=== PATIENT | female | born 1995 | race African-American/Black ===

== ENCOUNTER 2019-11-09 23:01 | Emergency (ER) | payer MEDICAID ==
[~2019-11-09] VITALS: Ht 180.3 cm; Wt 55.0 kg
[2019-11-09] MEDS ORDERED: SODIUM CHLORIDE 0.9% 1,000 ML IV ONE (23:33)
[2019-11-09] MEDS ORDERED: ONDANSETRON HCL 4MG/2ML INJ IV STA (23:33)
[2019-11-10 00:59] LABS: BASOPHILS % 0.2 % (0.0-2.0); HEMATOCRIT. 36.2 % (36.0-48.0); HEMOGLOBIN. 11.9 g/dL (12.0-16.0); LYMPHOCYTES % 16.7 % (20.0-50.0); MEAN CORPUSCULAR HEMOGLOBIN 30.4 pg (28.0-32.0); MEAN CORPUSCULAR VOLUME 92.9 fL (81.0-99.0); MONOCYTES % 6.8 % (2.0-8.0); NEUTROPHILS % 76.3 % (40.0-76.0); PLATELET 277 x1000/uL (130-400); RED CELL DISTRIBUTION WIDTH 16.5 % (11.6-14.6)
[2019-11-10 01:05] LABS: CHLORIDE 110 mEq/L (98-107)
[2019-11-10 01:09] LABS: ETHANOL BLOOD 127 mg/dL
[2019-11-10 01:17] LABS: CLARITY URINE CLOUDY (CLEAR); COLOR URINE YELLOW (YELLOW); KETONES URINE NEGATIVE (NEGATIVE); LEUKOCYTE ESTERASE URINE 2+ (NEGATIVE); NITRITE URINE NEGATIVE (NEGATIVE); OCCULT BLOOD URINE NEGATIVE (NEGATIVE); PH URINE 5.5 (4.5-8.0); PROTEIN URINE NEGATIVE (NEGATIVE); SPECIFIC GRAVITY URINE 1.012 (1.005-1.030); UROBILINOGEN URINE 0.2 E.U./dL (0.2-1.0)
[2019-11-10 01:27] LABS: *AMPHETAMINES SCREEN URINE NEGATIVE (NEGATIVE); *BARBITURATES SCREEN URINE NEGATIVE (NEGATIVE); *COCAINE SCREEN URINE NEGATIVE (NEGATIVE)
[2019-11-10 01:28] LABS: *BENZODIAZEPINES SCREEN URINE NEGATIVE (NEGATIVE); METHADONE URINE SCREEN NEGATIVE (NEGATIVE); OPIATES URINE SCREEN NEGATIVE (NEGATIVE); PHENCYCLIDINE URINE SCREEN NEGATIVE (NEGATIVE)
[2019-11-10 01:35] LABS: CANNABINOID URINE SCREEN PRESUMTIVE POSITIVE (NEGATIVE)
[2019-11-10 03:40] VITALS: BP 118/76
== END 2019-11-10 03:40 | disposition home or self-care (01) ==
LOC: ER 23:01
DX: F10.129 Alcohol abuse with intoxication, unspecified (principal); Y90.6 Blood alcohol level of 120-199 mg/100 ml; N30.00 Acute cystitis without hematuria
CPT/HCPCS: 36415; 80053; 80305; 80320; 81003; 81025; 85025; 87086; 96361; 96374; 99283; J2405; J7030; G0480

== ENCOUNTER 2019-11-10 05:27 | Emergency (ER) | payer SELFPAY ==
[~2019-11-10] VITALS: Ht 175.3 cm; Wt 59.0 kg
[2019-11-10 05:32] VITALS: BP 124/84
[2019-11-10] MEDS ORDERED: ONDANSETRON 4MG ODT PO STA (06:18)
== END 2019-11-10 06:50 | disposition left against medical advice (07) ==
LOC: ER 05:27
DX: R10.9 Unspecified abdominal pain (principal)
CPT/HCPCS: 99283; Q0162